=== PATIENT | female | born 1995 | race Caucasian/White ===

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

== ENCOUNTER 2017-05-06 08:56 | Emergency (ER) | payer MEDICAID ==
[2017-05-06 08:57] VITALS: BMI 28.4
[2017-05-06 09:25] VITALS: BP 130/83; PULSE 98; RESP 18; TEMP 98.7; O2SAT 99
--- NOTE | 2017-05-06 09:54 | C.PDOC ---
History Of Present Illness 21 y/o female presents to the ER complaining of intermittent epistaxis which has been present for 4 days. Patient states that she has history of epistaxis as child and she had a cauterization as a child. She reports that she has not seen an ENT for her current symptoms. Of note, patient has a second complaint as she states that she has mild sore throat and headache.She denies having fever , chills, and other complaints. Time Seen by Provider: 05/06/17 09:02 Chief Complaint (Nursing): ENT Problem History Per: Patient History/Exam Limitations: None Onset/Duration Of Symptoms: Days Current Symptoms Are (Timing): Still Present Severity: Moderate Past Medical History Reviewed: Historical Data, Nursing Documentation, Vital Signs Vital Signs: Last Vital Signs Temp 98.7 F 05/06/17 09:15 Pulse 98 H 05/06/17 09:15 Resp 18 05/06/17 10:02 BP 130/83 05/06/17 09:15 Pulse Ox 99 05/06/17 12:04 - Medical History PMH: No Chronic Diseases Surgical History: No Surg Hx Family History: States: No Known Family Hx - Social History Hx Alcohol Use: Yes Hx Substance Use: No - Immunization History Hx Tetanus Toxoid Vaccination: No Hx Influenza Vaccination: No Hx Pneumococcal Vaccination: No Review Of Systems Except As Marked, All Systems Reviewed And Found Negative. Constitutional: Negative for: Fever, Sweats ENT: Positive for: Nose Discharge, Throat Pain Neurological: Positive for: Headache Physical Exam - Physical Exam Appears: Non-toxic, No Acute Distress, Other (comfortable) Skin: Normal Color, Warm Head: Atraumatic, Normacephalic Eye(s): bilateral: Normal Inspection, PERRL Ear(s): Bilateral: Normal Nose: Normal, No Epistaxis, Other (no dry blood in nares) Oral Mucosa: Moist, Other (no blood in oral pharynx) Throat: Normal, No Erythema, No Exudate Neck: Supple Chest: Symmetrical Cardiovascular: Rhythm Regular Respiratory: Normal Breath Sounds, No Accessory Muscle Use, No Rales, No Rhonchi , No Wheezing Extremity: Normal ROM Neurological/Psych: Oriented x3, Normal Speech, Normal Cognition, Normal Motor, Normal Sensation ED Course And Treatment O2 Sat by Pulse Oximetry: 99 (RA) Pulse Ox Interpretation: Normal Progress Note: Patient has been discharged and told to follow up with ENT in 1 week. Disposition Counseled Patient/Family Regarding: Diagnosis, Need For Followup - Disposition Referrals: Jean Marie Townsend MD [Staff Provider] - Disposition: HOME/ ROUTINE Disposition Time: 09:40 Condition: STABLE Additional Instructions: FOLLOW UP WITH ENT WITHIN 1 WEEK RETURN TO ER IF SYMPTOMS WORSEN Instructions: Nosebleed (ED) Forms: [facility] (Croatian), School Excuse Print Language: HUNGARIAN - Clinical Impression Clinical Impression: Epistaxis - Scribe Statement The provider has reviewed the documentation as recorded by the Tabatha Barr Provider Attestation: All medical record entries made by the Tabatha were at my direction and personally dictated by me. I have reviewed the chart and agree that the record accurately reflects my personal performance of the history, physical exam, medical decision making, and the department course for this patient. I have also personally directed, reviewed, and agree with the discharge instructions and disposition.
== END 2017-05-06 10:03 | disposition home or self-care (01) ==
LOC: C.ER 08:56
DX: R04.0 Epistaxis (principal)

== ENCOUNTER 2017-11-09 14:08 | Emergency (ER) | payer MEDICAID ==
[2017-11-09 14:08] VITALS: BMI 28.4
[2017-11-09] MEDS ORDERED: Sodium Chloride 0.9% 1,000 ML IV ONE (14:54)
--- NOTE | 2017-11-09 15:05 | C.PDOC ---
History Of Present Illness 22 year old female presents to the ED complaining of right sided abdominal pain that began at 0400 this morning. Pain is constant and nonradiating. Patient denies any n/v/d, chest pain, SOB, cough, dysuria, or any other urinary symptoms. Patient denies any SHx of abdominal surgery. Time Seen by Provider: 11/09/17 14:44 Chief Complaint (Nursing): Abdominal Pain History Per: Patient History/Exam Limitations: no limitations Onset/Duration Of Symptoms: Hrs Current Symptoms Are (Timing): Still Present Location Of Pain/Discomfort: RUQ Radiation Of Pain To:: None Past Medical History Reviewed: Historical Data, Nursing Documentation, Vital Signs Vital Signs: Last Vital Signs Temp 98.5 F 11/09/17 14:12 Pulse 85 11/09/17 14:12 Resp 16 11/09/17 14:12 BP 124/77 11/09/17 14:12 Pulse Ox 100 11/09/17 16:19 - Medical History PMH: No Chronic Diseases Surgical History: No Surg Hx Family History: States: No Known Family Hx - Social History Hx Alcohol Use: Yes Hx Substance Use: No - Immunization History Hx Tetanus Toxoid Vaccination: No Hx Influenza Vaccination: No Hx Pneumococcal Vaccination: No Review Of Systems Except As Marked, All Systems Reviewed And Found Negative. Gastrointestinal: Positive for: Abdominal Pain Physical Exam - Physical Exam Appears: Non-toxic, No Acute Distress Skin: Warm, Dry Head: Atraumatic, Normacephalic Eye(s): bilateral: Normal Inspection Nose: Normal Oral Mucosa: Moist Neck: Supple Chest: Symmetrical Cardiovascular: Rhythm Regular, No Murmur Respiratory: Normal Breath Sounds, No Rales, No Rhonchi, No Wheezing Gastrointestinal/Abdominal: Tenderness (RUQ tenderness), No Distention, No Guarding, No Rebound Extremity: Bilateral: Atraumatic, Normal Color And Temperature, Normal ROM Neurological/Psych: Oriented x3, Normal Speech Gait: Steady ED Course And Treatment - Laboratory Results Result Diagrams: 11/09/17 15:27 11/09/17 15:27 O2 Sat by Pulse Oximetry: 100 (RA) Pulse Ox Interpretation: Normal - CT Scan/US US gallbladder Other Rad Studies (CT/US): Read By Radiologist, Radiology Report Reviewed CT/US Interpretation: Accession No. : [id number]. Patient Name / ID : DANYELL MATT / [id number]. Exam Date : 11/09/2017 15:50:54 ( Approved ). Study Comment : Sex / Age : F / 22Y. Creator : Edward Lovett MD. Dictator : Edward Lovett MD. Odd Piece Checker : Shop Firer/Fireman : Edward Lovett MD. Approver2 : Report Date : 11/09/2017 16:15:44. My Comment : . Date of service: 11/09/2017. HISTORY: ruq pain. COMPARISON: None. TECHNIQUE: Sonographic evaluation of the right upper quadrant of the abdomen. FINDINGS: LIVER: Measures 14.0 cm in length. Normal echogenicity of the liver parenchyma. No mass. No intrahepatic bile duct dilatation. GALLBLADDER: The gallbladder is distended with calculi. No significant mural thickening. No pericholecystic fluid collection identified or reported sonographic Pena's sign. Clinically correlate for potential cholecystitis nevertheless. COMMON BILE DUCT: Measures 3.0 mm. No stones. No dilatation. PANCREAS: Pancreas completely obscured by overlying bowel gas. RIGHT KIDNEY: Measures 10.0 cm in length. Normal echogenicity. No calculus, mass, or hydronephrosis. AORTA: No aneurysmal dilatation. IVC: Unremarkable. OTHER FINDINGS: None . IMPRESSION : Extensive cholelithiasis identified within the gallbladder. No reported sonographic Pena sign or biliary tree dilatation. Pancreas completely obscured by are overlying bowel gas. Medical Decision Making Medical Decision Making: Impression: Abdminal pain Plan: - Labs - Pepcid 20mg IVP - Toradol 30mg IVP - Zofran 4mg IVP - IV Fluids - UA - US gallbladder patient resting comfortably, states improvement. discussed results with patient and need to follow up with gi/surgery. patient states understanding. Disposition Counseled Patient/Family Regarding: Studies Performed, Diagnosis, Need For Followup, Rx Given - Disposition Referrals: Faheem Foster MD [Staff Provider] - Richi Chong MD [IM] - Disposition: HOME/ ROUTINE Disposition Time: 16:48 Condition: STABLE Additional Instructions: you must follow up with gi and surgery within 2 days call to make an appointment take medications as needed return to ER if symptoms worsens or progress Prescriptions: Famotidine [Pepcid] 20 mg PO BID #20 tab Naproxen [Naprosyn] 500 mg PO BID PRN #16 tab PRN Reason: Pain, Moderate (4-7) Ondansetron ODT [Zofran ODT] 4 mg PO TID PRN #12 odt PRN Reason: Nausea/Vomiting Instructions: Gallstones (DC) Forms: Gen Discharge Inst Kuwaiti, [facility] (K[place]i) Print Language: DANISH - Clinical Impression Clinical Impression: Gall stones
[2017-11-09 15:30] LABS: BASO % 0.5 % (0.0-2.0); EOS # 0.2 K/uL (0.0-0.7); EOS % 2.4 % (0.0-4.0); MEAN CELL VOLUME 84.1 fL (81.0-99.0); MEAN CORPUSCULAR HEMOGLOBIN 28.5 pg (27.0-31.0); MEAN CORPUSCULAR HGB CONC 33.9 g/dL (33.0-37.0); MEAN PLATELET VOLUME 10.4 fL (7.2-11.7); MONO # 0.6 K/uL (0.0-0.8); MONO % 8.1 % (0.0-10.0); NEUT # 4.4 K/uL (1.8-7.0); RBC 4.55 Mil/uL (3.80-5.20); RED CELL DISTRIBUTION WIDTH 13.6 % (11.5-14.5); WHITE BLOOD COUNT 7.2 K/uL (4.8-10.8)
[2017-11-09 15:34] LABS: SQUAMOUS EPITHIAL 10 /hpf (0-5); URINE BILIRUBIN NEGATIVE (NEGATIVE); URINE BLOOD NEGATIVE (NEGATIVE); URINE CLARITY Hazy (Clear); URINE COLOR Yellow (YELLOW); URINE GLUCOSE (UA) NORMAL (Normal); URINE LEUKOCYTE ESTERASE 1+ Leu/uL (Negative); URINE PROTEIN NEGATIVE (NEGATIVE); URINE UROBILINOGEN NORMAL mg/dL (0.2-1.0)
[2017-11-09] MEDS ORDERED: Sodium Chloride 0.9% 1,000 ML ONE (15:42)
[2017-11-09 15:45] LABS: ALB/GLOB RATIO 1.5 (1.0-2.1); ALBUMIN 4.5 g/dL (3.5-5.0); ALT/SGPT 25 U/L (9-52); AST/SGOT 32 U/L (14-36); BLOOD UREA NITROGEN 11 mg/dL (7-17); CALCIUM 9.7 mg/dl (8.6-10.4); GFR AFRICAN-AMERICAN > 60; GFR NON-AFRICAN AMERICAN > 60; LIPASE 82 U/L (23-300)
--- NOTE | 2017-11-09 16:17 | US ---
Date of service: 11/09/2017 HISTORY: ruq pain COMPARISON: None. TECHNIQUE: Sonographic evaluation of the right upper quadrant of the abdomen. FINDINGS: LIVER: Measures 14.0 cm in length. Normal echogenicity of the liver parenchyma. No mass. No intrahepatic bile duct dilatation. GALLBLADDER: The gallbladder is distended with calculi. No significant mural thickening. No pericholecystic fluid collection identified or reported sonographic Pena's sign. Clinically correlate for potential cholecystitis nevertheless. COMMON BILE DUCT: Measures 3.0 mm. No stones. No dilatation. PANCREAS: Pancreas completely obscured by overlying bowel gas. RIGHT KIDNEY: Measures 10.0 cm in length. Normal echogenicity. No calculus, mass, or hydronephrosis. AORTA: No aneurysmal dilatation. IVC: Unremarkable. OTHER FINDINGS: None . IMPRESSION: Extensive cholelithiasis identified within the gallbladder. No reported sonographic Pena sign or biliary tree dilatation. Pancreas completely obscured by are overlying bowel gas.
[2017-11-09 17:17] VITALS: BP 104/60; PULSE 75; RESP 18; TEMP 98.2; O2SAT 98
== END 2017-11-09 17:17 | disposition home or self-care (01) ==
LOC: C.ER 14:08
DX: K80.20 Calculus of gallbladder without cholecystitis without obstruction (principal)
CPT/HCPCS: 76705; 80053; 81001; 83690; 85025; 96361; 96374; 96375; 99285; J1885; J2405; J7030

== ENCOUNTER 2018-03-05 21:20 | Emergency (ER) | payer MEDICAID ==
[2018-03-05 21:20] VITALS: BMI 28.4
[2018-03-05 21:43] VITALS: O2SAT 99
[2018-03-05] MEDS ORDERED: Sodium Chloride 0.9% 500 ML IV ONE (22:17)
[2018-03-05] MEDS ORDERED: Sodium Chloride 0.9% 1,000 ML ONE (22:37)
[2018-03-05 22:44] LABS: BASO # 0.1 K/uL (0.0-0.2); BASO % 0.5 % (0.0-2.0); EOS # 0.2 K/uL (0.0-0.7); EOS % 1.5 % (0.0-4.0); HEMOGLOBIN 12.7 g/dL (11.0-16.0); LYMPH # 2.5 K/uL (1.0-4.3); LYMPH % 24.7 % (20.0-40.0); MEAN CELL VOLUME 84.9 fL (81.0-99.0); MEAN CORPUSCULAR HEMOGLOBIN 27.6 pg (27.0-31.0); MEAN CORPUSCULAR HGB CONC 32.5 g/dL (33.0-37.0); MEAN PLATELET VOLUME 10.7 fL (7.2-11.7); MONO # 0.7 K/uL (0.0-0.8); MONO % 7.1 % (0.0-10.0); NEUT # 6.8 K/uL (1.8-7.0); NEUT % 66.2 % (50.0-75.0); RBC 4.61 Mil/uL (3.80-5.20); RED CELL DISTRIBUTION WIDTH 13.5 % (11.5-14.5); WHITE BLOOD COUNT 10.2 K/uL (4.8-10.8)
[2018-03-05 22:54] LABS: HCG,QUALITATIVE URINE NEGATIVE (NEGATIVE)
[2018-03-05 22:55] LABS: ALB/GLOB RATIO 1.4 (1.0-2.1); ALBUMIN 4.5 g/dL (3.5-5.0); ALT/SGPT 37 U/L (9-52); AST/SGOT 24 U/L (14-36); BLOOD UREA NITROGEN 10 mg/dL (7-17); CALCIUM 9.4 mg/dl (8.6-10.4); GFR NON-AFRICAN AMERICAN > 60; LIPASE 101 U/L (23-300)
[2018-03-05 23:01] LABS: SQUAMOUS EPITHIAL 11 /hpf (0-5); URINE AMORPHOUS SEDIMENT MODERATE /ul (<OCC); URINE BACTERIA FEW (<OCC); URINE BILIRUBIN NEGATIVE (NEGATIVE); URINE BLOOD NEGATIVE (NEGATIVE); URINE CLARITY Turbid (Clear); URINE COLOR Yellow (YELLOW); URINE GLUCOSE (UA) NORMAL (Normal); URINE LEUKOCYTE ESTERASE 2+ Leu/uL (Negative); URINE PROTEIN NEGATIVE (NEGATIVE); URINE UROBILINOGEN NORMAL mg/dL (0.2-1.0)
--- NOTE | 2018-03-06 00:19 | C.PDOC ---
History Of Present Illness 22 year old female presents to the ER with a complaint of intermittent diarrhea for the past 2 weeks. Patients also having associated abdominal cramping and intermittent vomiting, last episode 4 days ago and was blood tinged. Patient believes the symptoms began after eating a pre-made lavon lettuce salad which was recently recalled. Denies hematemesis, bloody stools, fever or chills. Time Seen by Provider: 03/05/18 22:17 Chief Complaint (Nursing): Abdominal Pain History Per: Patient History/Exam Limitations: no limitations Onset/Duration Of Symptoms: Days (14) Current Symptoms Are (Timing): Still Present Context: Food Radiation Of Pain To:: None Quality Of Discomfort: Cramping Associated Symptoms: Vomiting, Diarrhea. denies: Fever, Chills Exacerbating Factors: None Alleviating Factors: None Recent travel outside of the [place]: No Past Medical History Reviewed: Historical Data, Nursing Documentation, Vital Signs Vital Signs: Last Vital Signs Temp 99.0 F 03/05/18 21:34 Pulse 80 03/05/18 21:34 Resp 18 03/05/18 21:34 BP 120/74 03/05/18 21:34 Pulse Ox 99 03/05/18 21:34 Family History: States: Unknown Family Hx - Social History Hx Alcohol Use: Yes Hx Substance Use: No - Immunization History Hx Tetanus Toxoid Vaccination: Yes Hx Influenza Vaccination: No Hx Pneumococcal Vaccination: No Review Of Systems Constitutional: Negative for: Fever, Chills Respiratory: Negative for: Cough, Shortness of Breath Gastrointestinal: Positive for: Vomiting, Diarrhea, Other (Abdominal cramping). Negative for: Melena, Hematemesis Genitourinary: Negative for: Dysuria, Hematuria Physical Exam - Physical Exam Appears: Non-toxic Skin: Normal Color, Warm, Dry Head: Atraumatic, Normacephalic Eye(s): bilateral: Normal Inspection Oral Mucosa: Moist Neck: Normal, Supple Chest: Symmetrical, No Tenderness Cardiovascular: Rhythm Regular Respiratory: Normal Breath Sounds, No Rales, No Rhonchi, No Wheezing Gastrointestinal/Abdominal: Soft, No Tenderness Back: No CVA Tenderness Neurological/Psych: Oriented x3, Normal Speech ED Course And Treatment - Laboratory Results Result Diagrams: 03/05/18 22:33 03/05/18 22:33 O2 Sat by Pulse Oximetry: 99 (Room air) Pulse Ox Interpretation: Normal Progress Note: Blood work and urinalysis ordered. IV fluids, pepcid, and zofran administered. On reevaluation, patient is resting comfortably in the ER in no acute distress, tolerating PO, vitals are stable, lab results were positive for UTI, will start on macrobid and discharge home with instructions to follow up with PMD or return if symptoms worsen. Disposition Counseled Patient/Family Regarding: Diagnosis, Need For Followup - Disposition Disposition: HOME/ ROUTINE Disposition Time: 00:16 Condition: STABLE Additional Instructions: BRAT Diet ( Banana, apple, rice tea or toast , gatorade, vit water, gingerale or sprite, broth) Avoid solid foods or dairy at least 48 hrs Follwo up with your doctor in 1-2 days Return to ER if sever pain, bloody diarrhea, unable to keep any fluids or not passing urine, fever or worse Prescriptions: Nitrofurantoin Macrocrystals [Macrobid] 1 cap PO BID #14 cap Ondansetron ODT [Zofran ODT] 1 odt PO BID PRN #6 odt PRN Reason: Nausea/Vomiting Instructions: Urinary Tract Infection, Adult (DC), Viral Gastroenteritis, Adult (DC) Forms: [facility] (Spanish) - Clinical Impression Clinical Impression: Gastroenteritis, UTI (urinary tract infection) - Scribe Statement The provider has reviewed the documentation as recorded by the Scribe Jesus Culp All medical record entries made by the Scribe were at my direction and personally dictated by me. I have reviewed the chart and agree that the record accurately reflects my personal performance of the history, physical exam, medical decision making, and the department course for this patient. I have also personally directed, reviewed, and agree with the discharge instructions and disposition.
[2018-03-06 01:42] VITALS: BP 118/72; PULSE 78; RESP 20; TEMP 98.7
== END 2018-03-06 00:25 | disposition home or self-care (01) ==
LOC: C.ER 21:20
DX: K52.9 Noninfective gastroenteritis and colitis, unspecified (principal); N39.0 Urinary tract infection, site not specified
CPT/HCPCS: 80053; 81001; 83690; 84703; 85025; 87086; 96374; 96375; 99284; J2405; J7040